=== PATIENT | male | born 1990 | race Caucasian/White ===

== ENCOUNTER 2017-06-05 15:53 | Emergency (ER) | payer OTHER, BC ==
[~2017-06-05] VITALS: Ht 177.8 cm; Wt 77.1 kg
--- NOTE | 2017-06-05 16:09 | ER Report ---
History and Physical Time Seen By MD: 16:08 Hx. of Stated Complaint: PT INJECTED HIMSELF WITH COW VACCINATION, HAEMOPHILUS SOMNUS AT 1300 TODAY HPI/ROS This note has been transcribed using voice recognition medical dictation software, proofreading has been performed in real time, however, minor errors in temple marker can occur. 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 Needle is three quarters of an inch long and he felt like it went to the bone. He continued working overtime noticed increased pain and swelling. On arrival here his knee is swollen he cannot flex or extend any significant pain at rest markedly worse with any range of motion. He cannot bear weight. Review of systems: Constitutional: No fevers or chills Skin symptoms: No rash Eye symptoms: Visual changes Gastrointestinal symptoms: No nausea or vomiting Musculoskeletal symptoms: Per history of present illness Neurologic symptoms: No headache All other systems reviewed and otherwise negative. Allergies: Coded Allergies: No Known Drug Allergies (Unverified , 06/05/17) Home Meds Reported Medications Ibuprofen (IBUPROFEN) 200 Mg Tablet, 4 TAB PO PRN Y for PAIN, TAB 06/06/17 Discontinued Scripts Hydrocodone Bit/Acetaminophen (NORCO 5-325 TABLET) 1 Each Tablet, 1-2 EACH PO Q4 -6H for PAIN, #18 TAB 0 Refills Prov:CARINA LANDON MD 06/05/17 Ondansetron (ZOFRAN ODT) 4 Mg Tab.rapdis, 4 MG PO Q4H Y for NAUSEA/VOMITING, # 20 TAB.CHEPE 0 Refills Prov:CARINA LANDON MD 06/05/17 Amoxicillin/Pot Clav 875-125 Mg Tab (AUGMENTIN 875-125 TABLET) 1 Each Tablet, 1 TAB PO Q12H for 7 Days, #14 TAB Prov:CARINA LANDON MD 06/05/17 Naproxen (NAPROXEN) 500 Mg Tablet, 500 MG PO BID for 7 Days, #14 TAB Prov:CARINA LANDON MD 06/05/17 Hx Substance Use Disorder: No Hx Alcohol Use: Yes ([employer] ) Constitutional Vital Sign - Last 24 Hours 06/05/17 06/05/17 06/05/17 06/05/17 15:57 15:58 16:28 16:53 Temp 99.6 Pulse 101 96 Resp 20 B/P (MAP) 155/89 (111) 155/89 138/91 (107) Pulse Ox 99 100 O2 Delivery Room Air 06/05/17 06/05/17 06/05/17 06/05/17 17:00 17:23 17:30 17:35 Pulse 85 90 B/P (MAP) 149/84 (105) 160/62 (94) Pulse Ox 99 100 06/05/17 06/05/17 06/05/17 06/05/17 17:50 18:00 18:05 18:20 Pulse 86 106 102 B/P (MAP) 146/90 (108) Pulse Ox 99 96 97 06/05/17 06/05/17 06/05/17 06/05/17 18:30 18:35 18:50 19:00 Pulse 118 110 B/P (MAP) 144/89 (107) 151/81 (104) Pulse Ox 94 97 06/05/17 06/05/17 19:05 19:20 Pulse 115 ??? Pulse Ox 97 Physical Exam Physical exam: Vital signs noted. General: Patient alert in moderate to severe distress. Does not appear ill. Skin: Warm and dry, he does have a small puncture wound about 3 cm above the lateral aspect of his left knee. No erythema or warmth. Head: [Normocephalic, atraumatic]. Eye: [Normal conjunctiva]. ENMT: [Oral mucosa moist, no pharyngeal erythema or exudate]. Neck: [Supple, trachea midline]. Cardiovascular: [Regular rate and rhythm without gallops murmurs or rubs. Normal peripheral perfusion with no edema noted]. Musculoskeletal: Left knee with marked edema tender to palpate laterally and medially and along the joint line. Significant pain with passive range of motion. No erythema noted.. Neurologic: Patient with normal sensation distal to the injury. Medical Decision Making Data Points Result Diagram: 06/05/17 1721 06/05/17 1721 Laboratory Hematology Test 06/05/17 17:21 06/05/17 19:25 Red Blood Count 5.87 M/uL (4.00-5.60) Mean Corpuscular Volume 88.6 fL (80.0-96.0) Mean Corpuscular Hemoglobin 32.0 pg (26.0-33.0) Mean Corpuscular Hemoglobin Concent 36.1 g/dL (32.0-36.0) Red Cell Distribution Width 12.7 % (11.5-14.5) Mean Platelet Volume 7.5 fL (7.2-11.1) Neutrophils (%) (Auto) 87.0 % (39.4-72.5) Lymphocytes (%) (Auto) 6.0 % (17.6-49.6) Monocytes (%) (Auto) 6.4 % (4.1-12.4) Eosinophils (%) (Auto) 0.4 % (0.4-6.7) Basophils (%) (Auto) 0.2 % (0.3-1.4) Nucleated RBC Relative Count (auto) 0.5 /100WBC Neutrophils # (Auto) 17.3 K/uL (2.0-7.4) Lymphocytes # (Auto) 1.2 K/uL (1.3-3.6) Monocytes # (Auto) 1.3 K/uL (0.3-1.0) Eosinophils # (Auto) 0.1 K/uL (0.0-0.5) Basophils # (Auto) 0.0 K/uL (0.0-0.1) Nucleated RBC Absolute Count (auto) 0.09 K/uL Erythrocyte Sedimentation Rate 1 mm/HOUR (0-15) Sodium Level 139 mmol/L (137-145) Potassium Level 3.5 mmol/L (3.5-5.0) Chloride Level 104 mmol/L (98-107) Carbon Dioxide Level 21 mmol/L (22-30) Blood Urea Nitrogen 14 mg/dl (9-21) Creatinine 1.10 mg/dl (0.66-1.25) Glomerular Filtration Rate Calc > 60.0 Random Glucose 106 mg/dl (75-110) Calcium Level 10.3 mg/dl (8.4-10.2) C-Reactive Protein < 0.5 mg/dl (<1.0) Body Fluid WBC 36061 Body Fluid RBC 1056 Body Fluid Neutrophils 94 % Body Fluid Lymphocytes 2 % Body Fluid Monocytes 4 % Chemistry Test 06/05/17 17:21 06/05/17 19:25 White Blood Count 19.9 k/uL (4.5-11.0) Red Blood Count 5.87 M/uL (4.00-5.60) Hemoglobin 18.8 g/dL (14.0-18.0) Hematocrit 52.0 % (42.0-52.0) Mean Corpuscular Volume 88.6 fL (80.0-96.0) Mean Corpuscular Hemoglobin 32.0 pg (26.0-33.0) Mean Corpuscular Hemoglobin Concent 36.1 g/dL (32.0-36.0) Red Cell Distribution Width 12.7 % (11.5-14.5) Platelet Count 242 K/uL (150-450) Mean Platelet Volume 7.5 fL (7.2-11.1) Neutrophils (%) (Auto) 87.0 % (39.4-72.5) Lymphocytes (%) (Auto) 6.0 % (17.6-49.6) Monocytes (%) (Auto) 6.4 % (4.1-12.4) Eosinophils (%) (Auto) 0.4 % (0.4-6.7) Basophils (%) (Auto) 0.2 % (0.3-1.4) Nucleated RBC Relative Count (auto) 0.5 /100WBC Neutrophils # (Auto) 17.3 K/uL (2.0-7.4) Lymphocytes # (Auto) 1.2 K/uL (1.3-3.6) Monocytes # (Auto) 1.3 K/uL (0.3-1.0) Eosinophils # (Auto) 0.1 K/uL (0.0-0.5) Basophils # (Auto) 0.0 K/uL (0.0-0.1) Nucleated RBC Absolute Count (auto) 0.09 K/uL Erythrocyte Sedimentation Rate 1 mm/HOUR (0-15) Glomerular Filtration Rate Calc > 60.0 Calcium Level 10.3 mg/dl (8.4-10.2) C-Reactive Protein < 0.5 mg/dl (<1.0) Body Fluid WBC 35076 Body Fluid RBC 1056 Body Fluid Neutrophils 94 % Body Fluid Lymphocytes 2 % Body Fluid Monocytes 4 % Microbiology Microbiology Date/Time Source Procedure Growth Status 06/05/17 19:25 Knee Fluid Left Gram Stain - Final Resulted 06/05/17 19:25 Knee Fluid Left Body Fluid Culture - Preliminary NO GROWTH AFTER 1 DAY, REINCUBATED Resulted 06/05/17 19:25 Knee Fluid Left Anaerobic Culture Pending Resulted EKG/Imaging Imaging Left knee x-ray with no acute process. Reviewed the x-ray myself and reviewed the radiology report. I do suspect a small effusion along the lateral aspect of the distal femur. ED Course/Re-evaluation ED Course 26-year-old male with puncture wound to left distal thigh with the possibility of involving the joint space. As significant pain with passive range of motion and swelling. X-ray shows effusion but otherwise unremarkable. White blood count 19,000. Assistance Berny Arauz PA-C with arthrocentisis of knee. Results pending at this time. Discussed with Dr. Perales who felt patient did not need to go the OR tonight for washout. Given patient 3 g of Unasyn IV with plan for home on Augmentin, [place], Naprosyn, Zofran and follow-up with the orthopedic clinic in the next 24 hours. Return precautions discussed in detail. Patient family expressed understanding and agreement. Procedure Procedure: Confirmed patient, procedure, side and site. Patient consent was obtained. Indication: Left knee swelling and pain Preprocedural exam: See physical exam above. Procedural sedation: None Monitoring: Cardiac, blood pressure, continuous pulse oximetry. See nurse's notes. Description: Left knee was prepped and draped in sterile fashion. 5 mL of 0.5 % ropivacaine was injected into the superior lateral aspect of the knee. 18- gauge needle was advanced into the joint space. Approximately 18 mL of bloody fluid was obtained. Sample was sent to lab for Gram stain and cultures and cell count. Postprocedural exam: Patient tolerated the procedure well. There were no complications. The procedure was performed by Berny Arauz PA-C I directly supervised and assisted in the procedure. Decision to Disposition Date: Jun 05, 2017 Decision to Disposition Time: 18:58 Depart Departure Latest Vital Signs Vital Signs Date Time Temp Pulse Resp B/P (MAP) Pulse Ox O2 Delivery O2 Flow Rate FiO2 06/05/17 19:20 ??? 06/05/17 19:05 97 06/05/17 19:00 151/81 (104) 06/05/17 15:58 99.6 20 Room Air Impression: Primary Impression: Puncture wound of knee, left Additional Impression: Puncture wound of left thigh Condition: Improved Disposition: HOME OR SELF-CARE Referrals: [facility] 1 Day Patient Instructions: Puncture Wound (ED) Additional Instructions: Follow-up with [facility] tomorrow for recheck. Let them know that Dr. Landon discussed the case with Dr. Perales and advised being seen in clinic tomorrow. Return to the emergency department for worsening of the pain, increased swelling, redness, fever or any other concerning symptoms. Problem Qualifiers CARINA LANDON MD Jun 05, 2017 16:09
[2017-06-05] MEDS ORDERED: DIPHTH/TETANUS/ACEL. PERTUSSIS IM ONLY ONE (16:20)
[2017-06-05] MEDS ORDERED: HYDROmorphone(ER ONLY) 1 MG/ML IVP ONE (17:20)
[2017-06-05] MEDS ORDERED: HYDROmorphone(ER ONLY) 1 MG/ML IVP PRN (17:20)
[2017-06-05] MEDS ORDERED: KETOROLAC 15 MG/ML VIAL IVP ONE (17:20)
[2017-06-05 17:47] LABS: PLATELET COUNT, AUTOMATED 242 K/uL (150-450)
--- NOTE | 2017-06-05 18:03 | RADIOLOGY IMAGING REPORT ---
[place] [facility] [place] NAME: Tomas Osborn : 1990 MR: [id number] V: [id number] EXAM DATE: ORDERING PHYSICIAN: CARINA LANDON TECHNOLOGIST: Location: [facility] [place] Patient: Tomas Osborn : 1990 Visit/Account:[id number] Date of Sevice: 06/05/2017 KNEE 3 VIEW LEFT Indication: Pain Comparison: None available Findings: 3 views of the left knee. No evidence of acute fracture, dislocation, or radiopaque foreign body. Normal mineralization, joint spaces, and alignment. IMPRESSION: Negative left knee radiographs. Report Dictated By: Rad Morillo MD at 06/05/2017 5:56 PM Report E-Signed By: Rad Morillo MD at 06/05/2017 5:57 PM WSN:[id number]
[2017-06-05] MEDS ORDERED: AMPICILLIN/SULBACT (*) 3 GM VL 3 GM in NS(*) 0.9% 100 ML BAG 100 ML IVPB ONE (18:30)
[2017-06-05 19:00] VITALS: BP 151/81
[2017-06-05] MEDS ORDERED: NAPR-724 PO (19:07)
[2017-06-05] MEDS ORDERED: AMOX-559 PO (19:13)
[2017-06-05] MEDS ORDERED: ONDA4TAB PO (19:13)
[2017-06-05] MEDS ORDERED: AMOX/CLAV 875 MG TAB PO ONE (19:15)
[2017-06-05] MEDS ORDERED: HYDR-4309 PO (19:16)
[2017-06-05] MEDS ORDERED: ACET/HYDROC 5/325MG TH ER ONLY 2 TAB/BOTTLE PO PRN ×2 (19:20)
[2017-06-05] MEDS ORDERED: ACET/HYDROC 5/325MG TH ER ONLY 2 TAB/BOTTLE PO ONE (19:35)
[2017-06-06] MEDS ORDERED: IBUP-56 PO (18:05)
[2017-06-08] MEDS ORDERED: ACET/HYDROC 5/325MG TH ER ONLY 2 TAB/BOTTLE PO ONE (12:15)
[2017-06-09] MEDS ORDERED: CEFT1VIA IVP (10:22)
[2017-06-09] MEDS ORDERED: Acetaminophen/Hydrocodone PO (10:22)
[2017-06-09] MEDS ORDERED: ASPI-816 PO (10:22)
[2017-06-09] MEDS ORDERED: IBUP800T37 PO (10:22)
[2017-06-09] MEDS ORDERED: VANC1.5P16 IV (10:22)
[2017-06-20] MEDS ORDERED: SULF-198 PO (14:00)
[2017-06-20] MEDS ORDERED: CEF300 PO (14:00)
== END 2017-06-05 19:35 | disposition home or self-care (01) ==
LOC: ER 16:16
DX: S71.132A Puncture wound without foreign body, left thigh, initial encounter (principal); W26.8XXA Contact with other sharp object(s), not elsewhere classified, initial encounter; Y93.89 Activity, other specified; Y92.79 Other farm location as the place of occurrence of the external cause; Z23 Encounter for immunization
CPT/HCPCS: 20610; 73562; 85025; 85651; 86140; 87071; 87073; 87205; 89050; 90471; 90715; 96365; 96375; 99284; J0295; J1170; J1885; J7050; L1830; 82310; 82374; 82435; 82565; 82947; 84132; 84295; 84520